=== PATIENT | male | born 2005 | race Caucasian/White ===

== ENCOUNTER 2023-10-15 11:25 | Inpatient (IN) ==
--- NOTE | 2023-10-15 11:46 | ED Triage Note ---
Date of Service October 15, 2023 Provider in Triage Author: Kati Stratton History of Present Illness This patient was briefly evaluated while in triage. An abbreviated physical exam was performed. This patient is a 18-year-old Male who presents to the ED for evaluation of vomiting and diarrhea since last night, episodes of syncope. Physical Exam Initial orders for labs and / or imaging were placed and patient was placed in the waiting area until a bed is available. Please see further documentation for the full ED course.
[2023-10-15] MEDS: SODIUM CHLORIDE 0.9% 1,000 ML IV STA (12:25)
[2023-10-15] MEDS: ONDANSETRON INJ 2 MG/ML 2 ML VIAL IV STA (12:25)
--- NOTE | 2023-10-15 12:41 | Emergency Department Note ---
Impression & Plan KATJA (acute kidney injury), Vomiting and diarrhea, Acute dehydration, Acidosis, Syncope, Tachycardia, Hypomagnesemia ED Provider Note NAME: JALEESA LAMBERT AGE: 18 SEX: M : 2005 ARRIVES VIA: Walk-In INFORMANT: [Patient] ED PROVIDER(S): [Celestino Carranza MD] CHIEF COMPLAINT: Vomiting and diarrhea HISTORY OF PRESENT ILLNESS: The patient is a 18-year-old male who states that at 2 AM, around 10 hours ago, he awoke with nausea and began vomiting. He has since vomited multiple times. He has developed diarrhea and he also has colicky diffuse abdominal pain. The abdominal pain is severe and radiates to his back. The patient tried Zofran without relief. He cannot even keep a sip of water down. Patient has had several episodes of syncope from his symptoms. No injuries. There have been no sick contacts. No fever, no cough or congestion. No blood in the vomit or diarrhea. The patient states that he did have a meal at [facility] yesterday that may have set things off. The patient is otherwise healthy, he has no bowel issues at baseline. PMHx/PSHx/Social Hx: See Below PHYSICAL EXAM: GENERAL: Patient is in mild to moderate distress from pain. HEENT: No acute trauma, normocephalic atraumatic, mucous membranes dry, no nasal congestion. NECK: No stridor, no adenopathy, no meningismus, trachea is midline. LUNGS: Clear to auscultation bilaterally, no wheeze, no rhonchi, breath sounds equal. HEART: Tachycardic, regular rhythm, no murmurs. ABDOMEN: Soft, mildly diffusely tender, no peritonitis. EXTREMITIES: No cyanosis, full range of motion of all the joints without pain or difficulty. NEUROLOGIC: Oriented x 3, no acute motor or sensory deficits, no focal weakness. SKIN: No jaundice, no diaphoresis. Pale. DIFFERENTIAL DIAGNOSIS: Foodborne or viral illness, dysrhythmia, vasovagal syncope, anemia, electrolyte imbalance, GI bleeding, among others. EMERGENCY DEPARTMENT PROCEDURES: MEDICAL DECISION MAKING: There is a mild leukocytosis, this could be consistent with infection or the stress of his current situation. His hemoglobin was high, likely from dehydration. There was a normal platelet count. Renal panel testing showed some acidosis, a low magnesium and acute kidney injury. No concerning liver enzyme elevation. No worrisome liver enzyme elevation. No evidence for pancreatitis. ECG showed a sinus tachycardia, no ischemia. Cardiac enzyme testing x 1 was not consistent with acute cardiac injury. Abdominal and pelvis CT did not show bowel obstruction or acute surgical pathology. On exam, the patient was tachycardic, pale, dehydrated. He appeared to be having intermittent abdominal discomfort. The patient received 1 L of IV saline, he was given 1 L of IV lactated Ringer's. He had received IV Zofran prior to my arrival in the room. I ordered for 12.5 mg of IV Phenergan. He received 15 mg of IV Toradol, 1 g of IV Tylenol, 2 mg of IV morphine. With the above treatment, the patient is feeling improved. His heart rate has decreased, he seems much more comfortable. The patient is clearly in need of a hospital stay. He has acute kidney injury secondary to dehydration. He has had a syncopal spells prior to arrival. He has had vomiting and diarrhea for the last 10 hours. A stool culture has been ordered, this result is pending. I spoke with the patient and case management, the on-call hospitalist was consulted. Prior/Outside records/notes reviewed: None ECG per my interpretation: Indication was tachycardia and syncope. The ECG shows a sinus tachycardia with a rate of 125. There are inverted T waves in the inferior leads. There is no acute ST elevation. There are no PVCs. The QTc is 430. Continuous Cardiac Monitoring per my interpretation: An order was placed for continuous cardiac monitoring. The monitor shows a rate of 131 with sinus tachycardia. Imaging/x-ray results per my interpretation: Chronic Medical/Social conditions affecting care: Care/Management discussed with: Case management, the on-call hospitalist. Level of care consideration(s): After review of the information above and other included data: --I believe the patient requires escalation of care to admission DISPOSITION: Admission Past Med/Surg History Medical History Depression Social History Smoking Status: Never smoker Tobacco Type: Cigarettes Hx Alcohol Use: No Hx Substance Use: Yes Last Used Substance: Days (ago) Last Used Substance Other:: Last night Preferred Language: Nepali Communication Ability: Effective Medical Stenographer Required: No Beliefs That Will Affect Care: None Current Living Situation: Alone Other Information That Helps Us Care for You: No Feels Safe at Home: Yes Safety Concerns: Feels Safe At This Time Assistive Devices: None Allergies Allergies Allergy/AdvReac Type Severity Reaction Status Date / Time No Known Allergies Allergy Unverified 10/15/23 14:24 Home Meds Home Medications Medication Instructions Recorded Confirmed fluoxetine 20 mg tablet 20 mg PO DAILY 10/15/23 10/15/23 Results & Data (ED) Vital Signs Vital Signs - 24 hr 10/15/23 11:46 10/15/23 13:00 10/15/23 13:35 Temperature 36.3 C L Temperature Source Temporal Artery Scan Pulse Rate 137 H 106 H Pulse Rate [Apical] 99 H Pulse Rhythm Regular Pulse Strength Normal Respiratory Rate 20 18 Respiratory Effort / Characteristics Non-Labored Spontaneous Non-Labored Spontaneous Respiratory Depth Normal Normal Respiratory Pattern Regular Blood Pressure 107/68 Blood Pressure [Left Arm] 134/99 Blood Pressure Mean 81 Blood Pressure Mean [Left Arm] 110 Blood Pressure Position Sitting Blood Pressure Position [Left Arm] Semi-fowlers Pulse Oximetry 98 99 Oxygen Delivery Method Room Air Room Air Sepsis Recent Fever Within 48 Hours No Sepsis New/Unexplained Change in Mental Status No Sepsis Action Taken by Nursing No Action Required 10/15/23 13:37 10/15/23 14:11 10/15/23 14:11 Temperature Temperature Source Pulse Rate 105 H 96 H Pulse Rate [Apical] Pulse Rhythm Pulse Strength Respiratory Rate 21 22 Respiratory Effort / Characteristics Respiratory Depth Respiratory Pattern Blood Pressure 109/89 Blood Pressure [Left Arm] Blood Pressure Mean 92 Blood Pressure Mean [Left Arm] Blood Pressure Position Blood Pressure Position [Left Arm] Pulse Oximetry 98 98 Oxygen Delivery Method Sepsis Recent Fever Within 48 Hours Sepsis New/Unexplained Change in Mental Status Sepsis Action Taken by Nursing 10/15/23 14:16 10/15/23 15:00 10/15/23 15:00 Temperature Temperature Source Pulse Rate 98 H 92 H Pulse Rate [Apical] Pulse Rhythm Pulse Strength Respiratory Rate 18 28 H Respiratory Effort / Characteristics Respiratory Depth Respiratory Pattern Blood Pressure 137/68 Blood Pressure [Left Arm] Blood Pressure Mean 96 Blood Pressure Mean [Left Arm] Blood Pressure Position Blood Pressure Position [Left Arm] Pulse Oximetry 99 98 Oxygen Delivery Method Room Air Sepsis Recent Fever Within 48 Hours Sepsis New/Unexplained Change in Mental Status Sepsis Action Taken by Longterm Medications Current Medication List: was personally reviewed by me Laboratory Data Attestation: I reviewed the patient's lab results. 10/15/23 12:28 10/15/23 12:28 Lab Results 10/15/23 10/15/23 Range/Units 12:28 14:58 WBC 13.27 H (4.8-10.8) K/ul RBC 6.30 H (4.70-6.10) M/uL Hgb 18.1 H (14.0-18.0) g/dl Hct 52.8 H (42.0-52.0) % MCV 83.8 (80.0-100.0) fL MCH 28.7 (25.0-34.0) pg MCHC 34.3 (32.0-36.0) g/dL RDW Std Deviation 39.6 (36.4-46.3) fL RDW Coeff of Christiano 13.0 (11.5-14.5) % Plt Count 352 (130-400) K/uL MPV 10.2 (9.4-12.4) fL Immature Gran % (Auto) 0.6 % Neut % (Auto) 90.4 % Lymph % (Auto) 2.1 % Kingfisher % (Auto) 6.6 % Eos % (Auto) 0.0 % Baso % (Auto) 0.3 % Neut # (Auto) 11.99 H (1.40-6.50) K/uL Lymph # (Auto) 0.28 L (1.20-3.40) K/uL Kingfisher # (Auto) 0.88 H (0.11-0.59) K/uL Eos # (Auto) 0.00 (0.00-0.50) K/uL Baso # (Auto) 0.04 (0.00-0.20) K/uL Immature Gran # (Auto) 0.08 (0.01-0.20) K/uL Toxic Vacuolation 1+ ESR 15 (0-15) mm/hr Sodium 133 L (136-145) mmol/L Potassium 5.4 H (3.5-5.1) mmol/L Chloride 99 (98-107) mmol/L Carbon Dioxide 16 L (21-32) mmol/L Anion Gap 18 H (3-11) BUN 35 H (6-23) mg/dl Creatinine 2.41 H (0.6-1.4) mg/dl Est Cr Clr Drug Dosing 51.6 ml/min Est GFR ( Amer) 43.2 ml/min Est GFR (Non-Af Amer) 37.2 ml/min BUN/Creatinine Ratio 14.5 (10-20) Glucose 185 H (70-99(Fasting)) mg/dl Lactate 4.1 H* (0.4-2.0) mmol/L Calcium 10.8 H (8.6-10.3) mg/dl Phosphorus 1.6 L (2.5-4.9) mg/dl Magnesium 1.4 L (1.7-2.4) mg/dl Total Bilirubin 1.0 (0.2-1.0) mg/dl AST 22 (13-39) U/L ALT 39 (7-52) U/L Alkaline Phosphatase 50 (34-104) U/L Troponin I High Sens 5.0 (0-20) pg/ml Total Protein 9.4 H (6.0-8.3) gm/dl Albumin 5.8 H (3.4-5.0) gm/dl Globulin 3.6 (2.5-4.0) gm/dl Albumin/Globulin Ratio 1.6 (0.9-2) Lipase 3 L (11-82) U/L Salicylates < 3.0 L (3.0-30) mg/dl Ethyl Alcohol mg/dL < 10.0 (<10.0) mg/dl Administered Medications Sodium Phosphate 9 mmol/ (Sodium Chloride) 253 mls @ 88 mls/hr IV ONE ONE Stop: 10/15/23 19:22 Last Admin: 10/15/23 16:33 Dose: 88 mls/hr Documented By: MONALISA Lactated Ringer's (Lr) 1,000 mls @ 200 mls/hr IV .Q5H AIDE Stop: 11/14/23 16:14 Last Admin: 10/15/23 16:32 Dose: 200 mls/hr Documented By: MONALISA Discontinued Medications Sodium Chloride (Nss) 1,000 mls @ 999 mls/hr IV .Q1H1M STA Stop: 10/15/23 12:46 Last Infusion: 10/15/23 13:27 Dose: Infused Documented By: Admin: 10/15/23 12:25 Dose: 999 mls/hr Documented By: MUKUND Promethazine HCl (Phenergan) 12.5 mg in 50.5 mls @ 202 mls/hr IV NOW STA Stop: 10/15/23 12:52 Last Infusion: 10/15/23 13:27 Dose: Infused Documented By: Admin: 10/15/23 12:58 Dose: 202 mls/hr Documented By: DAMEON Lactated Ringer's (Lr) 1,000 mls @ 999 mls/hr IV .Q1H1M ONE Stop: 10/15/23 13:38 Last Infusion: 10/15/23 14:27 Dose: Infused Documented By: Admin: 10/15/23 13:27 Dose: 999 mls/hr Documented By: WANDA Magnesium Sulfate/Dextrose (Magnesium Sulfate / D5w) 1 gm in 100 mls @ 100 mls/hr IV Q1H AIDE Stop: 10/15/23 15:54 Last Infusion: 10/15/23 16:51 Dose: Infused Documented By: [facility] Admin: 10/15/23 15:24 Dose: 100 mls/hr Documented By: Infusion: 10/15/23 15:06 Dose: Infused Documented By: [facility] Admin: 10/15/23 14:06 Dose: 100 mls/hr Documented By: DMAEON Lactated Ringer's (Lr) 1,000 mls @ 999 mls/hr IV .Q1H1M ONE Stop: 10/15/23 15:17 Last Infusion: 10/15/23 16:17 Dose: Infused Documented By: [facility] Admin: 10/15/23 14:49 Dose: 999 mls/hr Documented By: DAMEON Ketorolac Tromethamine (Ketorolac Tromethamine 15 Mg/Ml Vial) 15 mg IV NOW STA Stop: 10/15/23 12:39 Last Admin: 10/15/23 12:58 Dose: 15 mg Documented By: DAMEON Morphine Sulfate (Morphine Sulfate 2 Mg/Ml Carp) 2 mg IV NOW STA Stop: 10/15/23 12:39 Last Admin: 10/15/23 12:58 Dose: 2 mg Documented By: DAMEON Ondansetron HCl (Ondansetron Inj 2 Mg/Ml 2 Ml Vial) 4 mg IV NOW STA Stop: 10/15/23 11:47 Last Admin: 10/15/23 12:25 Dose: 4 mg Documented By: N Imaging Data Radiologist's Impression: Abdomen/Pelvis CT 10/15/23 13:05 CT OF THE ABDOMEN AND PELVIS WITHOUT CONTRAST CLINICAL HISTORY: Diffuse abdominal pain. Elevated creatinine. COMPARISON STUDY: No previous studies for comparison. TECHNIQUE: Axial images of the abdomen and pelvis were obtained without IV contrast. Images were reviewed in the axial, sagittal, and coronal planes. Automated exposure control was utilized for the study. A dose lowering technique was utilized adhering to the principles of ALARA. FINDINGS: Lung bases are unremarkable. No pneumatosis, free air or portal venous gas is present. No renal, ureteral or bladder calculi are present. There is no hydronephrosis. Evaluation the remainder of the abdomen and pelvis is suboptimal on this unenhanced exam. Liver, spleen, adrenal glands and pancreas are within normal limits. There is no biliary or pancreatic ductal dilatation. No peripancreatic or pericholecystic infiltration is present. There is no ascites. There is no evidence for a bowel obstruction. The appendix is unremarkable. No lymphadenopathy is present. There are no fluid collections. IMPRESSION: 1. No urinary calculi or hydronephrosis. 2. No acute process within the abdomen or pelvis on unenhanced exam. Normal appendix. No bowel obstruction. ACT 112: Negative or not required by law. Electronically signed by: Jeffrey Adamson M.D. 10/15/2023 2:25 PM Discharge Plan Visit Data Chief Complaint: Vomiting Stated Complaint: VOMITING, DEHYDRATION, SYNCOPE ED Provider: Celestino Carranza Discharge Problem: KATJA (acute kidney injury), Vomiting and diarrhea, Acute dehydration, Acidosis, Syncope, Tachycardia, Hypomagnesemia Patient Disposition: Admitted As Inpatient Condition: Fair Discharge Instructions Interventions: ED Discharge Assessment Last Done: 10/15/23 15:22 Discharge Problem: Syncope Qualifiers: Syncope type: unspecified Qualified Code(s): R55 - Syncope and collapse
[2023-10-15 12:50] LABS: Hematocrit (blood only) 52.8 % (42.0-52.0); Hemoglobin 18.1 g/dl (14.0-18.0); Mean Corpuscular Hemoglobin 28.7 pg (25.0-34.0); Mean Corpuscular Hgb Conc 34.3 g/dL (32.0-36.0); Mean Corpuscular Volume 83.8 fL (80.0-100.0); Mean Platelet Volume 10.2 fL (9.4-12.4); Platelet Count 352 K/uL (130-400); RDW Standard Deviation 39.6 fL (36.4-46.3); White Blood Count 13.27 K/ul (4.8-10.8)
[2023-10-15] MEDS: PROMETHAZINE 12.5 MG/50.5 ML BAG IV STA (12:58)
[2023-10-15] MEDS: MoRPHine SULFATE 2 MG/ML CARP IV STA (12:58)
[2023-10-15] MEDS: KETOROLAC TROMETHAMINE 15 MG/ML VIAL IV STA (12:58)
[2023-10-15 13:00] LABS: Albumin Globulin Ratio 1.6 (0.9-2); Albumin Level 5.8 gm/dl (3.4-5.0); BUN Creatinine Ratio 14.5 (10-20); Calcium 10.8 mg/dl (8.6-10.3); Creatinine Clr Calc Pharmacy 51.6 ml/min; Est GFR (African American) 43.2 ml/min; Est GFR (Non-African American) 37.2 ml/min; Globulin 3.6 gm/dl (2.5-4.0); Potassium 5.4 mmol/L (3.5-5.1); Total Protein 9.4 gm/dl (6.0-8.3)
[2023-10-15] MEDS: LACTATED RINGER'S 1,000 ML IV ONE ×2 (13:27→14:49)
[2023-10-15 13:37] LABS: Basophils # (auto) 0.04 K/uL (0.00-0.20); Basophils % (auto) 0.3 %; Immature Granulocytes # (auto) 0.08 K/uL (0.01-0.20); Immature Granulocytes % (auto) 0.6 %; Lymphocytes # (auto) 0.28 K/uL (1.20-3.40); Lymphocytes % (auto) 2.1 %; Monocytes # (auto) 0.88 K/uL (0.11-0.59); Monocytes % (auto) 6.6 %; Neutrophils # (auto) 11.99 K/uL (1.40-6.50); Neutrophils % (auto) 90.4 %; Toxic Vacuolation 1+
[2023-10-15 13:55] LABS: Magnesium 1.4 mg/dl (1.7-2.4)
[2023-10-15] MEDS: MAGNESIUM SULFATE / D5W 1 GM/100 ML BAG IV SCH (14:06)
--- NOTE | 2023-10-15 14:26 | CT Scan Report ---
CT OF THE ABDOMEN AND PELVIS WITHOUT CONTRAST CLINICAL HISTORY: Diffuse abdominal pain. Elevated creatinine. COMPARISON STUDY: No previous studies for comparison. TECHNIQUE: Axial images of the abdomen and pelvis were obtained without IV contrast. Images were revi ewed in the axial, sagittal, and coronal planes. Automated exposure control was utilized for the jud dy. A dose lowering technique was utilized adhering to the principles of ALARA. FINDINGS: Lung bases are unremarkable. No pneumatosis, free air or portal venous gas is present. No r enal, ureteral or bladder calculi are present. There is no hydronephrosis. Evaluation the remainder o f the abdomen and pelvis is suboptimal on this unenhanced exam. Liver, spleen, adrenal glands and marinelli creas are within normal limits. There is no biliary or pancreatic ductal dilatation. No peripancreati c or pericholecystic infiltration is present. There is no ascites. There is no evidence for a bowel o bstruction. The appendix is unremarkable. No lymphadenopathy is present. There are no fluid collectio ns. IMPRESSION: 1. No urinary calculi or hydronephrosis. 2. No acute process within the abdomen or pelvis on unenhanced exam. Normal appendix. No bowel obstru ction. ACT 112: Negative or not required by law. Electronically signed by: Jeffrey Adamson M.D. 10/15/2023 2:25 PM
--- NOTE | 2023-10-15 14:33 | History & Physical Report ---
Date of Service October 15, 2023 Assessment & Plan (1) KATJA (acute kidney injury): Plan: Suspected prerenal with profuse diarrhea Total 3L bolus given in ER, continue LR @ 200ml/hr overnight UA pending No postobstructive cause on CT Repeat BMP @ 6pm following IV fluids to make sure electrolytes, lactate and acidosis correcting (2) Sepsis: Plan: Meets criteria with elevated heart rate and white blood count Suspected source is gastroenteritis - usually this is a foodborne toxin effects versus viral therefore antibiotics not given (diarrhea improving, may make worse if c. diff, e. coli O157:H7 or causing antibiotic associated diarrhea) If patient getting worse overnight consider antibiotics Procalcitonin added and follow-up blood cultures Repeat lactate following fluid resuscitation (3) Vomiting and diarrhea: Plan: Ondansetron for nausea Stool and C. difficile PCR - if negative can start on Imodium as needed (4) Hyperkalemia: Plan: Secondary to KATJA, should resolve with IV fluids (5) Polycythemia: Plan: Secondary to dehydration (6) Metabolic acidosis: Plan: Suspect mostly lactic acidosis, avoid NSS, should resolve with IV fluids Salicylate and alcohol levels negative (7) Depression: Plan: Continue Prozac (8) Hypomagnesemia: Plan: Replace and repeat @ 6pm (9) Hypophosphatemia: Plan: Replace and repeat in a.m. Plan VTE prophylaxis - low risk Diet - clear liquids, advance as tolerated Disposition - admit to med/tele Admission and Anticipated Discharge Date Admission Date: October 15, 2023 History of Present Illness Chief Complaint: Nausea, vomiting Primary Care Provider: [facility] Vick Gamez is a 18 year old male who presents to the ER with diffuse abdominal pain, nausea, vomiting, diarrhea. He reports feeling fine yesterday and was well-hydrated. He ate a steak quesadilla and some sliders at [facility] yesterday. Symptoms started at 2 AM with abdominal pain was coming in waves, radiating to his back, upper abdomen, severity 8 out of 10 at worst, lasted until he received morphine in the emergency room. Associated profuse watery diarrhea, last diarrhea while in the waiting room (none in the ER). Associated bilious vomiting (none in the ER). Associated presyncope. No acid taste in his mouth, chest pain. He had 1 drink of alcohol yesterday. He reports having a similar but milder illness with norovirus approximately a month ago with 2 to 3 days of symptoms at that time. 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 No known current illnesses with his housemates. Allergies Allergy/AdvReac Type Severity Reaction Status Date / Time No Known Allergies Allergy Unverified 10/15/23 14:24 Home Medications Medication Instructions Recorded Confirmed Type fluoxetine 20 mg tablet 20 mg PO DAILY 10/15/23 10/15/23 History Past Med/Surg History Medical History Depression Social History Smoking Status: Never smoker Tobacco Type: Cigarettes Hx Alcohol Use: No Hx Substance Use: Yes Last Used Substance: Days (ago) Last Used Substance Other:: Last night Preferred Language: Slovenian Communication Ability: Effective Personal Financial Advisor Required: No Beliefs That Will Affect Care: None Current Living Situation: Alone Other Information That Helps Us Care for You: No Feels Safe at Home: Yes Safety Concerns: Feels Safe At This Time Assistive Devices: None Review of Systems Review of Systems: All systems reviewed & are unremarkable except as noted in HPI & below Physical Exam Constitutional: WD/WN, vitals as above Eyes: + anicteric sclerae; normal pupil size ENMT: external ear and nose normal, oropharynx normal Neck: trachea midline, no thyromegaly Respiratory: normal respiratory effort, lungs clear to auscultation Cardiovascular: Rate/Rhythm: regular rhythm and + tachycardic Heart Sounds: no murmur Extremities: normal capillary refill; no calf tenderness and no pedal edema Gastrointestinal (Abdomen): normal bowel sounds, soft, nontender, no hepatosplenomegaly Musculoskeletal: no cyanosis or clubbing, extremities motor strength 5/5 Skin: no rashes, warm and dry Neurologic: moves all extremities and awake; not confused Psychiatric: A+Ox3, euthymic affect Genitourinary: no CVA tenderness Results & Data Results & Data Vital Signs (Past 12 Hours) Vital Signs Temp Pulse Pulse Resp BP BP Pulse Ox 10/15/23 14:16 98 H 18 99 10/15/23 13:35 106 H 10/15/23 13:00 99 H 18 134/99 99 10/15/23 11:46 36.3 C L 137 H 20 107/68 98 O2 Del Method 10/15/23 14:16 Room Air 10/15/23 13:35 10/15/23 13:00 Room Air 10/15/23 11:46 Room Air Laboratory Results Abnormal lab results 10/15/23 Range/Units 12:28 WBC 13.27 H (4.8-10.8) K/ul RBC 6.30 H (4.70-6.10) M/uL Hgb 18.1 H (14.0-18.0) g/dl Hct 52.8 H (42.0-52.0) % Neut # (Auto) 11.99 H (1.40-6.50) K/uL Lymph # (Auto) 0.28 L (1.20-3.40) K/uL Kendall # (Auto) 0.88 H (0.11-0.59) K/uL Sodium 133 L (136-145) mmol/L Potassium 5.4 H (3.5-5.1) mmol/L Carbon Dioxide 16 L (21-32) mmol/L Anion Gap 18 H (3-11) BUN 35 H (6-23) mg/dl Creatinine 2.41 H (0.6-1.4) mg/dl Glucose 185 H (70-99(Fasting)) mg/dl Calcium 10.8 H (8.6-10.3) mg/dl Magnesium 1.4 L (1.7-2.4) mg/dl Total Protein 9.4 H (6.0-8.3) gm/dl Albumin 5.8 H (3.4-5.0) gm/dl Lipase 3 L (11-82) U/L Diagnostic Findings CT OF THE ABDOMEN AND PELVIS WITHOUT CONTRAST CLINICAL HISTORY: Diffuse abdominal pain. Elevated creatinine. COMPARISON STUDY: No previous studies for comparison. TECHNIQUE: Axial images of the abdomen and pelvis were obtained without IV contrast. Images were reviewed in the axial, sagittal, and coronal planes. Au tomated exposure control was utilized for the study. A dose lowering technique was utilized adhering to the principles of ALARA. FINDINGS: Lung bases are unremarkable. No pneumatosis, free air or portal venous gas is present. No renal, ureteral or bladder calculi are present. There is no hydronephrosis. Evaluation the remainder of the abdomen and pelvis is suboptimal on this unenhanced exam. Liver, spleen, adrenal glands and pancreas are within normal limits. There is no biliary or pancreatic ductal dilatation. No peripancreatic or pericholecystic infiltration is present. There is no ascites. There is no evidence for a bowel obstruction. The appendix is unremarkable. No lymphadenopathy is present. There are no fluid collections. IMPRESSION: 1. No urinary calculi or hydronephrosis. 2. No acute process within the abdomen or pelvis on unenhanced exam. Normal appendix. No bowel obstruction. Medications Administered ER medications given: Normal saline 1 L bolus Ondansetron 4 mg IV Phenergan 12.5 mg IV Toradol 15 mg IV Morphine 2 mg IV Lactated Ringer's 1 L bolus ECG Rate (beats per minute): 125 Rhythm: sinus tachycardia Findings: + other (Right axis deviation, nonspecific T wave abnormality in inferior leads) Comparison ECG Date: no prior available Code Status & VTE Plan Code Status Full VTE Prophylaxis Plan VTE Prophylaxis will be ordered: No PG Care Time/CCT Total # of Minutes Spent Total Time Spent with Patient: Total time spent is greater than 50% in coordination of care (as documented) at patient's floor/unit and/or counseling patient: Coding Level of Care Code 75746 INT INP/OBS CARE 3/75MIN Diagnoses KATJA (acute kidney injury) N17.9 Sepsis A41.9 Vomiting and diarrhea R11.10; R19.7 Hyperkalemia E87.5 Polycythemia D75.1 Metabolic acidosis E87.20 Depression F32.A Hypomagnesemia E83.42 Hypophosphatemia E83.39
[2023-10-15 14:44] LABS: Phosphorus 1.6 mg/dl (2.5-4.9)
--- NOTE | 2023-10-15 15:42 | XRay Report ---
XR chest 1V portable CLINICAL HISTORY: Sepsis TECHNIQUE: Single frontal radiograph of the chest was obtained. Comparison: None available at the time of this dictation. FINDINGS: No lines and tubes are seen. The cardiomediastinal silhouette is normal. The lungs are clear. No evid ence of pleural effusion or pneumothorax. IMPRESSION: No acute abnormalities and in particular no radiographic evidence of pneumonia. ACT 112: Negative or not required by law. Electronically signed by: Harris Summers M.D. 10/15/2023 3:41 PM
[2023-10-15] MEDS ORDERED: SODIUM PHOSPHATE 3 MMOL/1 ML INFUSION IV STA (16:05)
[2023-10-15] MEDS ORDERED: ACETAMINOPHEN 1,000 MG/100 ML VIAL IV PRN (16:15)
[2023-10-15] MEDS: LACTATED RINGER'S 1,000 ML IV SCH (16:32)
[2023-10-15] MEDS: SODIUM PHOSPHATE 9 MMOL in SODIUM CHLORIDE 0.9% 250 ML IV ONE (16:33)
[2023-10-15] MEDS ORDERED: ONDANSETRON INJ 2 MG/ML 2 ML VIAL IV PRN (16:57)
[2023-10-15 17:33] LABS: Appearance Urine Cloudy (Clear); Bacteria Urine Automated None Seen (None Seen); Bilirubin Urine Negative (Negative); Blood Urine Negative (Negative); Calcium Oxalate Crystals Urine Present (None Prsent); Cast Urine Automated >20 /lpf (0-2); Color Urine Yellow; Epithelial Cell Urine Auto 0-2 /hpf (0-2); Glucose Urine UA Negative (Negative); Hyaline Casts Urine Present /lpf (None Presnt); Ketones Urine Trace (Negative); Leukocyte Esterase Urine Negative (Negative); Nitrite Urine Negative (Negative); Protein Urine 1+ (Negative); RBC Urine Automated 0-2 /hpf (0-2); Specific Gravity Urine 1.021 (1.000-1.030); Urobilinogen Urine Negative (Negative); WBC Urine Automated 0-5 /hpf (0-5); Waxy Casts Urine Present /lpf (None Prsent); pH Urine 5.5 (4.5-7.5)
[2023-10-15 18:51] LABS: BUN Creatinine Ratio 21.8 (10-20); Calcium 8.8 mg/dl (8.6-10.3); Creatinine Clr Calc Pharmacy 87.6 ml/min; Est GFR (African American) 81.8 ml/min; Est GFR (Non-African American) 70.6 ml/min; Magnesium 2.1 mg/dl (1.7-2.4); Potassium 4.7 mmol/L (3.5-5.1)
[2023-10-15 19:04] LABS: C Reactive Protein 4.81 mg/dl (0-0.5)
[2023-10-15 21:23] LABS: Adenovirus F 40/41 PCR Not Detected (NotDetected); Astrovirus PCR Not Detected (NotDetected); Campylobacter PCR Not Detected (NotDetected); Cryptosporidium PCR Not Detected (NotDetected); Cyclospora cayetanensis PCR Not Detected (NotDetected); Entamoeba histolytica PCR Not Detected (NotDetected); Enteroaggregative E.coli(EAEC) Not Detected (NotDetected); Enteropathogenic E.coli (EPEC) Not Detected (NotDetected); Enterotoxigenic E.coli (ETEC) Not Detected (NotDetected); Giardia lamblia PCR Not Detected (NotDetected); Plesiomonas shigelloides PCR Not Detected (NotDetected); Rotavirus A PCR Not Detected (NotDetected); Salmonella PCR Not Detected (NotDetected); Sapovirus PCR Not Detected (NotDetected); Shiga-like Toxin E.coli (STEC) Not Detected (NotDetected); Shigella/Enteroinvasive E.coli Not Detected (NotDetected); Vibrio cholerae PCR Not Detected (NotDetected); Vibrio species PCR Not Detected (NotDetected); Yersinia enterocolitica PCR Not Detected (NotDetected)
[2023-10-15 21:27] LABS: Norovirus GI/GII PCR DETECTED (NotDetected)
[2023-10-15] MEDS ORDERED: LOPERAMIDE HCL 2 MG CAP PO PRN (22:46)
[2023-10-16 04:51] LABS: Albumin Globulin Ratio 1.8 (0.9-2); Albumin Level 3.7 gm/dl (3.4-5.0); BUN Creatinine Ratio 23.5 (10-20); Bilirubin,Total 0.6 mg/dl (0.2-1.0); Calcium 8.5 mg/dl (8.6-10.3); Creatinine Clr Calc Pharmacy 126.9 ml/min; Est GFR (African American) 128.1 ml/min; Est GFR (Non-African American) 110.5 ml/min; Globulin 2.1 gm/dl (2.5-4.0); Magnesium 2.1 mg/dl (1.7-2.4); Phosphorus 2.9 mg/dl (2.5-4.9); Potassium 4.1 mmol/L (3.5-5.1); Total Protein 5.8 gm/dl (6.0-8.3)
[2023-10-16 05:54] LABS: Hemoglobin 13.1 g/dl (14.0-18.0); Mean Corpuscular Hemoglobin 29.2 pg (25.0-34.0); Mean Corpuscular Hgb Conc 34.5 g/dL (32.0-36.0); Mean Corpuscular Volume 84.6 fL (80.0-100.0); Mean Platelet Volume 10.4 fL (9.4-12.4); Platelet Count 173 K/uL (130-400); RDW Coefficient of Variation 13.1 % (11.5-14.5); RDW Standard Deviation 40.2 fL (36.4-46.3); Red Blood Count 4.49 M/uL (4.70-6.10); White Blood Count 4.41 K/ul (4.8-10.8)
[2023-10-16 05:57] LABS: Basophils # (auto) 0.02 K/uL (0.00-0.20); Basophils % (auto) 0.5 %; Eosinophils # (auto) 0.03 K/uL (0.00-0.50); Eosinophils % (auto) 0.7 %; Immature Granulocytes # (auto) 0.02 K/uL (0.01-0.20); Immature Granulocytes % (auto) 0.5 %; Lymphocytes # (auto) 1.19 K/uL (1.20-3.40); Monocytes # (auto) 0.57 K/uL (0.11-0.59); Monocytes % (auto) 12.9 %; Neutrophils # (auto) 2.58 K/uL (1.40-6.50); Neutrophils % (auto) 58.4 %; Platelet Estimate Normal (Normal)
--- NOTE | 2023-10-16 06:19 | Electrocardiogram Report ---
Test Reason : Blood Pressure : / mmHG Vent. Rate : 125 BPM Atrial Rate : 125 BPM P-R Int : 122 ms QRS Dur : 086 ms QT Int : 298 ms P-R-T Axes : 039 113 -03 degrees QTc Int : 430 ms Sinus tachycardia Right axis deviation Poor R wave progression, consider anterior DE vs. lead placement vs. LVH T wave abnormality, consider inferior ischemia Abnormal ECG No previous ECGs available Confirmed by Juan Diego Wright ([id number]) on 10/16/2023 6:19:13 AM Referred By: REFERRED SELF Confirmed By:Juan Diego Wright
[2023-10-16] MEDS: FLUoxetine HCL 20 MG CAP PO SCH (08:30)
[2023-10-16] MEDS ORDERED: ACETAMINOPHEN 325 MG TAB PO PRN (11:40)
[2023-10-16 17:31] LABS: Basophils # (auto) 0.01 K/uL (0.00-0.20); Basophils % (auto) 0.2 %; Eosinophils # (auto) 0.06 K/uL (0.00-0.50); Eosinophils % (auto) 1.4 %; Hematocrit (blood only) 39.4 % (42.0-52.0); Hemoglobin 13.1 g/dl (14.0-18.0); Immature Granulocytes # (auto) 0.02 K/uL (0.01-0.20); Immature Granulocytes % (auto) 0.5 %; Lymphocytes # (auto) 1.41 K/uL (1.20-3.40); Lymphocytes % (auto) 31.9 %; Mean Corpuscular Hemoglobin 28.9 pg (25.0-34.0); Mean Corpuscular Hgb Conc 33.2 g/dL (32.0-36.0); Mean Corpuscular Volume 86.8 fL (80.0-100.0); Mean Platelet Volume 10.4 fL (9.4-12.4); Monocytes # (auto) 0.58 K/uL (0.11-0.59); Monocytes % (auto) 13.1 %; Neutrophils # (auto) 2.34 K/uL (1.40-6.50); Neutrophils % (auto) 52.9 %; Platelet Count 175 K/uL (130-400); RDW Standard Deviation 40.9 fL (36.4-46.3); Red Blood Count 4.54 M/uL (4.70-6.10); White Blood Count 4.42 K/ul (4.8-10.8)
--- NOTE | 2023-10-16 17:50 | Discharge Summary ---
Date of Service October 16, 2023 Admission HPI Per Admitting Provider Vick Gamez is a 18 year old male who presents to the ER with diffuse abdominal pain, nausea, vomiting, diarrhea. He reports feeling fine yesterday and was well-hydrated. [facility] steak qu[facility]adilla [facility]. Symptoms started at 2 AM with abdominal pain was coming in waves, radiating to his back, upper abdomen, severity 8 out of 10 at worst, lasted until he received morphine in the emergency room. Associated profuse watery diarrhea, last diarrhea while in the waiting room (none in the ER). Associated bilious vomiting (none in the ER). Associated presyncope. No acid taste in his mouth, chest pain. He had 1 drink of alcohol yesterday. He reports having a similar but milder illness with norovirus approximately a month ago with 2 to 3 days of symptoms at that time. At that time it was sprea ding through the [employer]. No known current illnesses with his housemates. Discharge Data Allergies Allergy/AdvReac Type Severity Reaction Status Date / Time No Known Allergies Allergy Unverified 10/15/23 14:24 Consultations 10/15/23 14:10 ED Decision to Admit Stat Ordered Studies 10/15/23 13:05 CT abd pelvis wo con Stat Hospital Course (1) KATJA (acute kidney injury): Suspected prerenal with profuse diarrhea Total 3L bolus given in ER, continue LR @ 200ml/hr overnight UA pending No postobstructive cause on CT Repeat BMP @ 6pm following IV fluids to make sure electrolytes, lactate and acidosis correcting (2) Sepsis: Meets criteria with elevated heart rate and white blood count Suspected source is gastroenteritis - usually this is a foodborne toxin effects versus viral therefore antibiotics not given (diarrhea improving, may make worse if c. diff, e. coli O157:H7 or causing antibiotic associated diarrhea) If patient getting worse overnight consider antibiotics Procalcitonin added and follow-up blood cultures Repeat lactate following fluid resuscitation (3) Vomiting and diarrhea: Ondansetron for nausea Stool and C. difficile PCR - if negative can start on Imodium as needed (4) Hyperkalemia: Secondary to KATJA, should resolve with IV fluids (5) Polycythemia: Secondary to dehydration (6) Metabolic acidosis: Suspect mostly lactic acidosis, avoid NSS, should resolve with IV fluids Salicylate and alcohol levels negative (7) Depression: Continue Prozac (8) Hypomagnesemia: Replace and repeat @ 6pm (9) Hypophosphatemia: Replace and repeat in a.m. Plan VTE prophylaxis - low risk Diet - clear liquids, advance as tolerated Disposition - admit to med/tele Discharge Plan Discharge Items Reason For Visit: KATJA, DIARRHEAL ILLNESS,HYPERKALEMIA, METABOLIC ACI Condition on Discharge: Fair Follow-up/Referrals: [facility] [Primary Care Provider] - Medications and DC Order Prescriptions: No Action fluoxetine 20 mg Tablet 20 mg PO DAILY Admission Data Admit Date/Time: 10/15/23 15:09 Attending Provider: Dl Meneses Admit Provider: Dl Rivers Primary Care Provider: [facility] Other Providers: Dl Rivers Coding Diagnoses KATJA (acute kidney injury) N17.9 Sepsis A41.9 Vomiting and diarrhea R11.10; R19.7 Hyperkalemia E87.5 Polycythemia D75.1 Metabolic acidosis E87.20 Depression F32.A Hypomagnesemia E83.42 Hypophosphatemia E83.39
--- NOTE | 2023-10-17 04:12 | Electrocardiogram Report ---
Test Reason : Blood Pressure : / mmHG Vent. Rate : 060 BPM Atrial Rate : 060 BPM P-R Int : 166 ms QRS Dur : 102 ms QT Int : 404 ms P-R-T Axes : 024 005 014 degrees QTc Int : 404 ms Normal sinus rhythm with sinus arrhythmia Minimal voltage criteria for LVH, may be normal variant Cannot rule out Inferior infarct , age undetermined Abnormal ECG When compared with ECG of 15-OCT-2023 12:27, Vent. rate has decreased BY 65 BPM QRS duration has increased T wave amplitude has decreased in Anterior leads Confirmed by Juan Diego Wright ([id number]) on 10/17/2023 4:11:36 AM Referred By: REFERRED SELF Confirmed By:Juan Diego Wright
== END 2023-10-16 18:47 | disposition home or self-care (01) | DRG 872 ==
LOC: ED 11:25 → SUATTDRO 15:09 → EDINP 15:09 → 3E 15:22